=== PATIENT | female | born 1995 | race Caucasian/White ===

== ENCOUNTER 2021-12-29 20:07 | Inpatient (IN) ==
[2021-12-29] MEDS ORDERED: miSOPROStoL 200 MCG TABLET RECTAL PRN (21:31)
[2021-12-29] MEDS ORDERED: METHYLERGONOVINE 0.2 MG/1 ML AMP IM PRN (21:31)
[2021-12-29] MEDS ORDERED: LACTATED RINGERS 250 ML IV ONE (21:31)
[2021-12-29] MEDS ORDERED: ONDANSETRON 4 MG/2 ML VIAL IV PRN (21:31)
[2021-12-29] MEDS ORDERED: TRANEXAMIC ACID 1,000 MG in SODIUM CHLORIDE 0.9% 100 ML IV PRN (21:31)
[2021-12-29] MEDS ORDERED: OXYTOCIN/LR 20 UNIT/1,000 ML BAG IV ONE (21:31)
[2021-12-29] MEDS ORDERED: CARBOPROST TROMETHAMINE 250 MCG/ML AMP IM PRN (21:31)
[2021-12-29] MEDS ORDERED: LACTATED RINGERS 500 ML IV PRN (21:31)
[2021-12-29] MEDS ORDERED: AMPICILLIN INJ 2,000 MG in SODIUM CHLORIDE 0.9% 100 ML IV ONE (21:35)
[2021-12-29] MEDS ORDERED: DINOPROSTONE 10 MG VAG.INSERT VAG ONE (21:44)
[2021-12-29 22:04] LABS: Basophils % 0.4 % (0.0-0.8); Eosinophils % 0.4 % (0.00-10.9); Hematocrit 34.3 VOL% (35.7-47.0); Hemoglobin 11.4 GM/DL (12.0-16.0); Immature Granulocytes % 1.8 %; Immature Granulocytes Absolute 0.15 #; Lymphocytes # 1.3 10*3/uL (1.4-4.0); Mean Corpuscular HGB Conc 33.2 GM/DL (32-36); Mean Corpuscular Volume 85.8 FL (87-102); Mean Platelet Volume 10.8 FL (9.6-12.0); Monocytes # 0.8 10*3/uL (0.11-0.8); Neutrophils % 71.4 % (38.7-73.9); Platelet Count 163 T/CUMM (130-400); Red Cell Distribution Width 16.4 % (9.3-17.3); White Blood Count 8.4 T/CUMM (4-12)
[2021-12-29] MEDS: LACTATED RINGERS 1,000 ML IV SCH (23:15)
[2021-12-30] MEDS ORDERED: AMPICILLIN INJ 2,000 MG in SODIUM CHLORIDE 0.9% 100 ML IV SCH (01:30)
[2021-12-30] MEDS: AMPICILLIN INJ 2,000 MG in SODIUM CHLORIDE 0.9% 100 ML IV SCH ×3 (06:26→18:40)
[2021-12-30] MEDS ORDERED: ACETAMINOPHEN 325 MG TABLET PO ONE (06:32)
[2021-12-30] MEDS ORDERED: OXYTOCIN/LR 20 UNIT/1,000 ML BAG IV SCH (16:00)
[2021-12-30] MEDS ORDERED: MEPERIDINE 50 MG/1 ML VIAL IV ONE (16:30)
[2021-12-30] MEDS ORDERED: MEPERIDINE 25 MG/1 ML VIAL IV PRN (16:42)
[2021-12-30] MEDS ORDERED: diphenhydrAMINE 50 MG/1 ML VIAL IV PRN ×2 (17:38)
[2021-12-30] MEDS ORDERED: NALOXONE 0.4 MG/ML VIAL IV PRN (17:38)
[2021-12-30] MEDS ORDERED: ePHEDrine 50 MG/ML VIAL IV PRN (17:38)
[2021-12-30] MEDS ORDERED: CITRIC ACID/SODIUM CITRATE 30 ML UDCUP PO ONE (17:38)
[2021-12-30] MEDS ORDERED: FAMOTIDINE 20 MG/2 ML VIAL IV ONE (17:38)
[2021-12-30] MEDS ORDERED: LACTATED RINGERS 1,000 ML IV ONE (17:38)
[2021-12-30] MEDS ORDERED: LACTATED RINGERS 1,000 ML IV SCH (18:00)
[2021-12-30] MEDS ORDERED: fentaNYL 2 MCG/ROPIV 0.2% EPID 100 ML EPIDURAL SCH (18:00)
[2021-12-30] MEDS: LACTATED RINGERS 1,000 ML IV SCH (18:48)
[2021-12-30 20:02] LABS: Bilirubin,Urine Negative (Negative); Blood, Urine Negative (Negative); Glucose,Urine (UA) Negative (Negative); Ketones,Urine 20 mg/dL (Negative); Mucus,Urine Occasional /LPF (Occasional); Nitrite,Urine Negative (Negative); Protein,Urine 30 mg/dL (Negative); RBC,Urine 2 /HPF (0-4); Squamous Epithelial Cell,Urine Occasional /HPF (0-10); Urine Appearance CLEAR (Clear); Urine Color Yellow (Yellow); Urine Specific Gravity 1.025 (1.001-1.035); Urine Urobilinogen < 2.0 eU/dL (<2.0)
[2021-12-30] MEDS ORDERED: SODIUM CHLORIDE 0.9% 0 ML IV ONE (23:45)
[2021-12-30] MEDS ORDERED: TRANEXAMIC ACID 1,000 MG/10 ML VIAL ONE (23:45)
[2021-12-30] MEDS ORDERED: METHYLERGONOVINE 0.2 MG/1 ML AMP ONE (23:45)
[2021-12-30] MEDS ORDERED: miSOPROStoL 200 MCG TABLET ONE (23:45)
[2021-12-30] MEDS ORDERED: CARBOPROST TROMETHAMINE 250 MCG/ML AMP IM ONE (23:46)
[2021-12-31 01:10] LABS: Cord Arterial Blood HCO3 19.4 MMOL/L
[2021-12-31 01:14] LABS: Cord Venous Blood HCO3 20.4 MMOL/L; Cord Venous Blood PCO2 49.3 MMHG; Cord Venous Blood PO2 23.3
[2021-12-31] MEDS ORDERED: oxyCODONE/ACETAMINOPHEN 5-325 MG TABLET PO PRN ×2 (01:24)
[2021-12-31] MEDS ORDERED: ONDANSETRON 4 MG/2 ML VIAL IV PRN (01:24)
[2021-12-31] MEDS ORDERED: DIPH/TET/ACEL PERT BOOSTER VACCINE 0.5 ML VIAL IM ONE (01:24)
[2021-12-31] MEDS ORDERED: BISACODYL 10 MG SUPP RECTAL PRN (01:24)
[2021-12-31] MEDS ORDERED: OXYTOCIN/LR 20 UNIT/1,000 ML BAG IV ONE (01:24)
[2021-12-31] MEDS ORDERED: RHO(D) IMMUNE GLOBULIN 300 MCG SYRINGE IM ONE (01:24)
[2021-12-31] MEDS ORDERED: BENZOCAINE 20%/MENTHOL 0.5% SPRAY 56 GM CAN TOP PRN (01:24)
[2021-12-31] MEDS ORDERED: HYDROCORTISONE 2.5% RECTAL CREAM 30 GM TUBE TOP PRN (01:24)
[2021-12-31] MEDS ORDERED: WITCH HAZEL PADS 100/JAR TOP PRN (01:24)
[2021-12-31] MEDS ORDERED: MEASLES/MUMPS/RUBELLA VACCINE 0.5 ML VIAL SUBCUT ONE (01:24)
[2021-12-31] MEDS ORDERED: LANOLIN 50% CREAM 0.3 OZ TUBE TOP PRN (01:24)
[2021-12-31] MEDS ORDERED: ACETAMINOPHEN 325 MG TABLET PO PRN (01:24)
[2021-12-31] MEDS: IBUPROFEN 800 MG TABLET PO PRN ×2 (04:04→15:07)
[2021-12-31 04:54] LABS: Basophils % 0.2 % (0.0-0.8); Hematocrit 30.2 VOL% (35.7-47.0); Hemoglobin 9.8 GM/DL (12.0-16.0); Immature Granulocytes % 0.9 %; Immature Granulocytes Absolute 0.15 #; Lymphocytes # 0.8 10*3/uL (1.4-4.0); Lymphocytes % 4.4 % (21.3-54.2); Mean Corpuscular HGB Conc 32.5 GM/DL (32-36); Mean Corpuscular Volume 89.3 FL (87-102); Mean Platelet Volume 10.8 FL (9.6-12.0); Monocytes # 1.6 10*3/uL (0.11-0.8); Monocytes % 9.4 % (1.7-12.7); Neutrophils % 85.1 % (38.7-73.9); Platelet Count 159 T/CUMM (130-400); Red Blood Count 3.38 MC/CUMM (3.8-5.5); Red Cell Distribution Width 16.8 % (9.3-17.3); White Blood Count 17.5 T/CUMM (4-12)
[2021-12-31 05:38] LABS: Band Neutrophils 1 % (0-10); Lymphocytes 1 % (20-55); Microcytosis 1+; Ovalocytes Slight; Total Cells Counted 100
[2021-12-31] MEDS: DOCUSATE SODIUM 100 MG CAPSULE PO SCH ×2 (08:55→22:41)
[2022-01-01 06:39] LABS: Basophils # 0.1 10*3/uL (0.0-0.2); Basophils % 0.5 % (0.0-0.8); Eosinophils # 0.1 10*3/uL (0.0-0.87); Eosinophils % 0.7 % (0.00-10.9); Hematocrit 22.8 VOL% (35.7-47.0); Hemoglobin 7.4 GM/DL (12.0-16.0); Immature Granulocytes % 2.5 %; Immature Granulocytes Absolute 0.32 #; Lymphocytes # 1.7 10*3/uL (1.4-4.0); Lymphocytes % 13.5 % (21.3-54.2); Mean Corpuscular HGB Conc 32.5 GM/DL (32-36); Mean Corpuscular Volume 89.8 FL (87-102); Mean Platelet Volume 10.4 FL (9.6-12.0); Monocytes % 7.5 % (1.7-12.7); Neutrophils % 75.3 % (38.7-73.9); Platelet Count 134 T/CUMM (130-400); Red Blood Count 2.54 MC/CUMM (3.8-5.5); White Blood Count 12.7 T/CUMM (4-12)
[2022-01-01] MEDS: DOCUSATE SODIUM 100 MG CAPSULE PO SCH (09:55)
[2022-01-01 19:22] VITALS: BP 121/82
== END 2022-01-01 13:30 | disposition home or self-care (01) | DRG 768 ==
LOC: N.LDOUT 20:07 → N.LD 20:08 → N.OB 12-31 13:22
PROVIDERS: ADMIT Obstetrics & Gynecology; ATTEND Obstetrics & Gynecology